=== PATIENT | male | born 1990 | race Caucasian/White ===

== ENCOUNTER 2020-10-09 14:43 | Outpatient (CLI) | payer OTHER ==
--- NOTE | 2020-10-09 15:02 | RAD ---
Exam:4 views right knee HISTORY: Fall couple weeks ago. Pain. COMPARISON: None FINDINGS: Nonspecific sclerosis along the distal femur likely representing a fibroxanthoma. Trace laura nt effusion. No acute fracture. Preserved joint spaces. IMPRESSION: 1. 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 Trace joint effusion. No definite fracture. 3. If there is concern for internal derangement, consider MRI
== END 2020-10-09 14:44 | disposition home or self-care (01) ==
LOC: SCSRAD 14:43
PROVIDERS: ATTEND Student in an Organized Health Care Education/Training Program
DX: M25.561 Pain in right knee (principal); D16.21 Benign neoplasm of long bones of right lower limb